=== PATIENT | male | born 1965 | race Caucasian/White ===

== ENCOUNTER 2020-02-05 15:57 | Emergency (ER) | payer BC, SELFPAY ==
[2020-02-05 15:57] VITALS: BP 181/100; PULSE 67; RESP 15; TEMP 36.4; O2SAT 99; BMI 28.5
--- NOTE | 2020-02-05 16:19 | RAD_ITS ---
STUDY: X-RAY - RIGHT HAND, ATTENTION THIRD AND FOURTH FINGER REASON FOR EXAM: Male, 54 years old. CAUGHT 3-4 DISTAL PHALANX IN AGILE SCRUM MASTER, PAIN TECHNIQUE: 3 view(s) of the finger were obtained. COMPARISON: None. FINDINGS: Normal metacarpal head. Normal metacarpophalangeal joint. Normal proximal and middle phalanges. There are acute fractures of the christophe of the distal phalanges of the third and fourth fingers. There is focal defect of the tuft of the third finger. There is soft tissue bandage and injury. Normal proximal interphalangeal joint. Normal distal interphalangeal joint. RAD/Finger(s) Min 2 Views IMPRESSION: Fractures of the christophe of the third and fourth fingers. Electronically Signed: Jamison Nelson MD at 16:55 EDT , Service support ,
[2020-02-05] MEDS: Bupivacaine Mpf 0.5% 30 ML VIAL INFILT (16:22)
[2020-02-05 18:49] VITALS: BP 170/96; PULSE 64; RESP 15; O2SAT 96
--- NOTE | 2020-02-05 18:49 | ED.DCSUM_ITS ---
- ER Visit Summary Date of Service: 02/05/20 Chief Complaint: Got my fingers caught in a wood ehs manager. History of Present Illness: The patient is a [address] Marc. He is right-hand dominant. He reports that at home he had work gloves on and got his right third and fourth fingers caught in a wood ehs manager. States that he has an aching pain is 6 out of 10 with movement 3-10 at rest. He denies any paresthesias. His tetanus is up-to-date. Physical Examination: Vitals: Stable. Afebrile. General: Well-nourished and well-developed. Head: Normocephalic atraumatic. Neck: Supple, no lymphadenopathy. No JVD. Nontender. Cardiovascular: Regular rate and rhythm. No murmurs. Respiratory: No respiratory distress. Clear to auscultation bilaterally. Abdominal: Soft, nontender, nondistended, normal bowel sounds. No guarding, rebound, or peritoneal signs. Back: Nontender. Extremities: The dorsal surface of his right third finger shows the nail to be mostly ground away. There is superficial tissue loss and exposed bone. There is no involvement of the palmar surface of this. The nail is in place and the eponychial fold. His fourth finger shows there to be approximately two thirds of the nail eroded. There is only a a small amount of bone that is exposed in the distal medial corner. There is no involvement of the palmar surface of this finger either. He has less than 2-second capillary refill. Skin: Normal color, no rash. Neurologic: Alert and oriented ?3. Cranial nerves II through XII are intact. Normal strength and sensation. Psych: Normal affect. Test Results: Clinical Impression(s) from Imaging Studies Finger X-Ray 02/05/20 16:19 IMPRESSION: Fractures of the christophe of the third and fourth fingers. Electronically Signed: Jamison Nelson MD at 16:55 EDT , Service support , Emergency Department Course and Treatment: Patient was given a dose of Ancef IM. He had a digital block performed to both fingers. They were cleansed with chlorhexidine soap and copiously irrigated. Vaseline gauze was placed over the exposed bone. Treatment Plan: Patient was discussed with Dr. Nirav Hyatt who asked that I discussed him with a hand surgeon. He was discussed with Dr. Winter from [facility] who asked that he be discharged on Keflex and contact her for follow-up in 2 days for another exam. Patient does realize that he may end up losing the distal phalanx of his third and fourth fingers. Return to the emergency department for any worsening symptoms. Disposition: To home in improved and stable condition. Impression: 1. 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 This note was generated with [employer] software. It may contain incorrect words, spelling, and punctuation that were not noted in review of the chart prior to signing ED Disposition - Plan for ED Patient: Disposition: Home or Assisted Living Instructions: ED Fx Finger Open Prescriptions: Cephalexin [Keflex] 500 mg PO Q6 #40 cap Prescription Printed Oxycodone HCl/Acetaminophen [Percocet 5/325] 1 tab PO Q6H PRN PRN 5 Days #20 tab PRN Reason: Pain Score 6-10/10 Prescription Printed Additional Instructions: Call Dr. Winter, [facility], at [phone] [place] Friday. She will see you in the [place] office and discuss options for further treatment.
[2020-02-05] MEDS: Cefazolin 1 GM/5 ML Vial IM (19:42)
== END 2020-02-05 20:09 | disposition home or self-care (01) ==
PROVIDERS: Emergency Provider Emergency Medicine; PCP Student in an Organized Health Care Education/Training Program
DX: S68.622A Partial traumatic transphalangeal amputation of right middle finger, initial encounter (principal); S68.624A Partial traumatic transphalangeal amputation of right ring finger, initial encounter; W31.2XXA Contact with powered woodworking and forming machines, initial encounter; Y93.9 Activity, unspecified; Y99.9 Unspecified external cause status
CPT/HCPCS: 64450; 73140; 96372; 99284

== ENCOUNTER 2022-07-18 00:13 | Emergency (ER) | payer BC, SELFPAY ==
[2022-07-18 00:14] VITALS: BP 143/99; PULSE 63; RESP 16; TEMP 36.7; O2SAT 98; BMI 32.1
[2022-07-18] MEDS: HYDROmorphone 1 MG/ML Syringe IV ×2 (00:24→01:14)
[2022-07-18] MEDS: 0.9% Normal Saline 1,000 ML 1000 ML IV (00:25)
[2022-07-18 00:28] LABS: Absolute Lymphocyte Count 3.56 X10^3/uL (0.83-4.51); Absolute Neutrophil Count 7.2 X10^3/uL (2.0-7.7); Basophil# 0.09 X10^3/uL; Basophil% 0.7 % (0-1); Eosinophil# 0.16 X10^3/uL; Eosinophils% 1.3 % (0-5); Hematocrit 44.2 % (40-54); Hemoglobin 15.3 g/dL (13.0-16.5); Lymphocyte # 3.56 X10^3/ul (0.83-4.51); Lymphocyte % 28.3 % (19-41); Mean Corp Hgb Conc 34.6 g/dL (32-36); Mean Corpuscular Hgb 31.5 pg (27.0-32.0); Mean Corpuscular Volume 91.1 fL (80-94); Mean Platelet Vol. 10.8 fl (6.2-12.0); Monocyte# 1.17 X10^3/uL; Monocyte% 9.3 % (0-10); NRBC Flagged by Analyzer 0 % (0-5); Neutrophil # 7.23 X10^3/uL (2.7-7.7); Neutrophil % 57.5 % (47-70); Platelet Count 199 K/mm3 (150-450); RBC Distribution Width CV 12.8 % (11.6-14.6); RBC Distribution Width SD 42.5 fl (35.1-43.9); Red Blood Count 4.85 M/mm3 (4.6-6.2); White Blood Count 12.6 K/mm3 (4.4-11.0)
--- NOTE | 2022-07-18 00:34 | CT_ITS ---
INDICATION: blunt trauma multiple rib fractures EXAMINATION: CT ABDOMEN AND PELVIS WITH CONTRAST - CT Chest Abdomen And Pelvis W/ Contrast Injection TECHNIQUE: Helically acquired images were obtained of the abdomen and pelvis following IV contrast. A radiation dose optimization technique was used for this scan. IV Contrast dosage and agent: 100 mL Isovue-370 Oral contrast: None. Radiation Dose (provided by facility) CTDIvol (45.72 ) mGy, DLP ( 2806.55) mGy-cm COMPARISON: None. FINDINGS: CT CHEST: LUNGS: [Minimal atelectasis at the lung bases greater on LEFT than RIGHT. No consolidation. There is a displaced rib fragment with mild deformity of lateral aspect RIGHT lower lobe (series 7: Image 57). No pneumothorax noted.. No mass. No consolidation. PLEURAL SPACES: Unremarkable, no effusion or pneumothorax noted.. HEART: Unremarkable. No pericardial effusion. VASCULATURE: Unremarkable. No aortic aneurysm. MEDIASTINUM AND LYMPH NODES: Minimal air bubbles noted in the anterior mediastinum (series 7: Image 80). CERVICAL THORACIC JUNCTION: There is normal appearance of the visualized airway. No masses or abnormal fluid collections. Visualized thyroid is within normal limits. CT ABDOMEN PELVIS: HEPATOBILIARY: Liver: The liver is homogeneous and shows no evidence of focal lesion. No parenchymal laceration or hemorrhage. Gallbladder: The gallbladder is unremarkable. Pancreas: Pancreas is normal size configuration and density. No mass is noted. Spleen: The spleen is homogeneous and normal in size. . No parenchymal laceration or hemorrhage. BOWEL: 1. Stomach: The stomach is normal in size configuration, no evidence of focal masses, abnormal calcifications. No hiatal hernia noted. 2. Bowel: Small and large have normal configuration, no masses or bowel obstruction noted. 3. Appendix: Normal: GENITOURINARY: Adrenals: RIGHT adrenal gland is moderately enlarged and contains a 3.0 x 2.1 cm nodule with mean Hounsfield density is 62 0 silk limits. LEFT adrenal gland has normal appearance.. Kidneys: Kidneys appear symmetric in size. No calcifications are seen in the collecting system. There is no hydronephrosis or surrounding fluid. Bladder: Normal Pelvic organs: The visualized pelvic organs are normal in size and configuration. No masses or adenopathy noted. RETROPERITONEUM: There is normal appearance of the abdominal aorta and inferior vena cava. No evidence of retroperitoneal or para-aortic masses fluid collections or adenopathy. ANTERIOR ABDOMINAL WALL: Normal, no hernia identified. CHEST ABDOMEN PELVIS - BONES AND BODY WALL SOFT TISSUES: 1. No evidence fractures involving the shoulders including the clavicles. 2. No sternal fracture or thoracic spine fracture noted. 3. Multiple RIGHT rib fractures are present including RIGHT third, fourth, fifth rib fractures. Significant displaced RIGHT sixth rib and to lesser extent seventh rib fractures. 4. No evidence of fractures involving the lumbar spine, sacrum, sacroiliac joints, pelvis and hips bilaterally. OTHER: None CT/CT Chest, Abd, Pel w/Contrast IMPRESSION: 1. Multiple RIGHT rib fractures including RIGHT third through seventh ribs. There is moderate displacement of a bony fragment at the RIGHT sixth rib. No pneumothorax. 2. Several small air bubbles are present in the anterior mediastinum of indeterminate origin. 3. Minimal atelectasis at the lung bases, no consolidation or effusion. 4. No evidence of vascular injury involving the great vessels. 5. No evidence of acute traumatic injury to the solid organs of the abdomen and pelvis including the liver, pancreas, spleen, and kidneys. 6. No evidence masses bowel obstruction abscess free fluid or free air. Normal appendix noted. 7. No evidence of obstructive uropathy involving either kidney. 8. 3.0 x 2.1 cm RIGHT adrenal nodule. In the absence of previous imaging for comparison, consider short-term follow-up in approximately 4-6 months to assure stability, alternatively evaluation with MRI or triple phase CT to establish washout kinetics. Electronically Signed: Mega Coronado MD at 1:51 EDT ,
--- NOTE | 2022-07-18 00:34 | CT_ITS ---
INDICATION: trauma EXAMINATION: CT CERVICAL SPINE - CT Spine Cervical W/O Contrast Injection TECHNIQUE: Helically acquired images were obtained of the cervical spine. 2D reformatted images were reviewed. A radiation dose optimization technique was used for this scan. IV Contrast dosage and agent: None. COMPARISON: None. FINDINGS: VERTEBRAE: No fracture or traumatic subluxation. No discrete lytic or blastic abnormality. Normal alignment. Normal craniocervical junction and cervicothoracic junction. Normal appearance of the odontoid process. DISCS and SPINAL CANAL: Disc heights are preserved. No critical stenosis. NECK SOFT TISSUES: No prevertebral soft tissue swelling. There is no cervical adenopathy. LUNG APICES: Clear. CT/Spine Cervical without Contras IMPRESSION: 1. No evidence of acute cervical spinal fracture or spondylolisthesis. No evidence of acutely acquired canal stenosis. Electronically Signed: Mega Coronado MD at 1:38 EDT ,
--- NOTE | 2022-07-18 00:34 | CT_ITS ---
INDICATION: trauma EXAMINATION: CT BRAIN - CT Head or Brain W/O Contrast Injection TECHNIQUE: Multiple axial images were obtained of the head without intravenous contrast. A radiation dose optimization technique was used for this scan. IV Contrast dosage and agent: None. RADIATION DOSAGE (If Supplied By Facility): CTDIvol = ( 44.99 ) mGy, DLP = ( 914.22 ) mGycm COMPARISON: None FINDINGS: HEMISPHERES: 1. The cerebral parenchyma, ventricular system, subarachnoid spaces have normal configuration and density. There is a normal gyral pattern. There is normal farias/white differentiation. No midline shift.. 2. The hemispheric white matter has normal appearance. 3. No intraparenchymal mass, hemorrhage, or acute territorial infarct. CEREBELLUM - BRAINSTEM: The cerebellum, brainstem, basilar and suprasellar cisterns have normal appearance. No Chiari malformation. PITUITARY: Infundibulum and pituitary have normal configuration. Midline structures appear normal. CSF SPACES: Appropriate for age. No hydrocephalus. Basal cisterns are patent. VESSELS: 1. No significant vascular calcifications in the cavernous carotid vessels. 2. No hyperdense vascular signs noted.. ORBITS AND PARANASAL SINUSES: 1. Normal appearance of the bony orbits. Normal appearance of the globes and retrobulbar soft tissues.. 2. Paranasal sinuses are clear of air-fluid levels. Mild mucosal thickening and mucous retention cysts in the maxillary antra.. BONY ELEMENTS: Bony elements of the cranial vault, facial skeleton and skull base have normal appearance. SCALP AND SOFT TISSUES: Normal appearance of the soft tissues of the scalp and the visualized face OTHER: None ASPECTS Score for Acute Strokes: 10 CT/Brain/Head without Contrast IMPRESSION: 1. No intracranial evidence of acute traumatic injury. 2. No intracranial mass, hemorrhage or acute territorial infarct. 3. No cranial facial fractures noted. 4. No radiographically significant sinus disease with the exception of bilateral maxillary mucous retention cyst... Electronically Signed: Mega Coronado MD at 1:34 EDT ,
[2022-07-18 00:37] VITALS: BP 151/111; PULSE 68; RESP 32; O2SAT 95
[2022-07-18 00:39] LABS: International Normalized Ratio 1.2; Prothrombin Time (Protime)PT. 14.7 SECONDS (11.7-14.9)
[2022-07-18 00:40] LABS: Partial Thromboplast Time 27.1 Seconds (24.1-36.2)
--- NOTE | 2022-07-18 00:40 | RAD_ITS ---
INDICATION: trauma EXAMINATION/TECHNIQUE: X-RAY - XR Chest 1 View COMPARISON: None. FINDINGS: LIFE-SUPPORT AND LINES: 1. None HEART AND VESSELS: The cardiac silhouette, pulmonary vasculature have normal appearance. No evidence of congestive failure. LUNGS AND PLEURAL SPACES: Lungs are clear of lobar consolidation, patchy density along the periphery of the RIGHT lower lobe. Mild basilar atelectasis noted. No pneumothorax. MEDIASTINUM AND HILAR REGIONS: No masses adenopathy noted. No areas of calcification. Visualized upper airway is normal in position. BONY ELEMENTS: Mildly displaced RIGHT fifth sixth and seventh ribs. RAD/Chest 1 View (Portable) IMPRESSION: 1. Mildly displaced RIGHT fifth, sixth, seventh rib fractures. 2. Patchy areas of underlying parenchymal density, mild atelectasis versus pulmonary contusion are considerations. 3. No pneumothorax. 4. Mild basilar atelectasis. 5. No congestive failure Electronically Signed: Mega Coronado MD at 1:05 EDT ,
[2022-07-18 00:51] LABS: AST(SGOT) 107 U/L (15-37); Alanine Aminotransfer ALT/SGPT 96 U/L (16-61); Alkaline Phosphatase 71 U/L (45-117); Anion Gap 7 (5-15); BUN 17 mg/dL (7-18); BUN/Creat Ratio 15.5 RATIO (10-20); Chloride 109 mmol/L (98-107); EST Glomerular Filtration Rate 73 mL/min (>60); Est Glom Filt Rate - Afr Amer 88 mL/min (>60); Estimated Creatinine Clearance 77.96 ml/min; Globulin 3.9 g/dL (2.2-4.2); Glucose 126 mg/dL (74-106); Potassium 3.5 mmol/L (3.5-5.1); Protein, Total 7.9 g/dL (6.4-8.2); Sodium Level 143 mmol/L (136-145); Troponin-I HS 8 pg/mL (3.0-78.0)
--- NOTE | 2022-07-18 00:54 | EX.ED.GENINJ ---
HPI History of Present Illness Chief Complaint: Trauma Informant: patient and EMS Narrative Narrative: 57-year-old male arriving via EMS with a chief complaint of chest pain. Reportedly he was cutting a tree when it fell on his chest. He notes pain on the right side of his chest. EMS was concerned for potential for head injury due to reported unequal pupils. The patient denies any head or neck symptoms. He states his legs feel fine. He denies any abdominal pain but EMS notes bruising and firmness of the abdomen. [facility] Medical History Hypertension Allergy/AdvReac Type Severity Reaction Status Date / Time No Known Allergies Allergy Verified 07/18/22 00:16 Social History (Updated 07/18/22 @ 00:[address] Jose Jennings DO) Smoking Status: Never smoker substance use type: does not use ROS ROS ED Constitutional Constitutional ED: Denies chills or weight loss Eyes Eyes: Denies change in vision or diplopia ENT ENT ED: Denies ear pain, rhinorrhea or sore throat Cardiovascular Cardiovascular: Reports chest pain; Denies orthopnea, palpitations or racing heartbeat Respiratory/Chest Respiratory/Chest: Denies cough, dyspnea or orthopnea Gastrointestinal Gastrointestinal: Denies abdominal pain, diarrhea, nausea or vomiting Genitourinary Genitourinary ED: Denies dysuria, hematuria or urinary frequency Musculoskeletal Musculoskeletal: Denies arthralgias or myalgias Integumentary Denies abscess or rash Neurologic Neurologic: Denies headache(s) or weakness Psychiatric Psychiatric: Denies anxiety, depression, suicidal ideation or suicidal thoughts Endocrine Endocrinology: Denies polydipsia, polyphagia or polyuria Allergic/Immunologic Allergic/Immunologic ED: Denies mouth swelling, tongue swelling or urticaria EXAM Physical Exam Const Vital Signs: 07/18/22 00:14 07/18/22 00:32 07/18/22 00:37 Temperature 98.1 F Temperature Source Temporal Pulse Rate 63 68 Respiratory Rate 16 32 H Respiratory Effort Short of Breath Respiratory Depth Normal Respiratory Pattern Tachypnea Blood Pressure 143/99 H 151/111 H Blood Pressure Mean 113 124 Pulse Ox 98 95 Oxygen Delivery Method Room Air Room Air Room Air Oxygen Flow Rate (L/min) 07/18/22 01:24 07/18/22 01:24 07/18/22 03:15 Temperature 97.9 F Temperature Source Pulse Rate 84 87 Respiratory Rate 26 H 21 H Respiratory Effort Respiratory Depth Respiratory Pattern Blood Pressure 199/106 H 153/96 H Blood Pressure Mean 137 115 Pulse Ox 92 97 Oxygen Delivery Method Room Air Nasal Cannula Oxygen Flow Rate (L/min) 2 07/18/22 03:30 Temperature Temperature Source Pulse Rate 83 Respiratory Rate 20 H Respiratory Effort Respiratory Depth Respiratory Pattern Blood Pressure 195/99 H Blood Pressure Mean 131 Pulse Ox 95 Oxygen Delivery Method Room Air Oxygen Flow Rate (L/min) Positive well nourished and well developed General Appearance ED: well developed HEENT Reports normocephalic, head/scalp atraumatic and moist mucous membranes Eyes PERRL and EOMs intact bilaterally General Eye ED: Yes other Neck no lymphadenopathy, supple and no JVD Chest Wall Chest Narrative: There is tenderness to palpation of the right chest. There appears to be palpable rib fractures. Resp normal respiratory effort and clear to auscultation bilaterally Cardio regular rate, regular rhythm and no murmurs GI non-tender GI Narrative: He appears to be bruising over the lower abdomen. The abdomen is firm. Inspection: Negative for abdominal distention Palpation: soft Back/Spine no CVA tenderness and normal ROM Back/Spine Narrative: abrasion/contusion to upper back Extremity normal to inspection General Extremety ED: Negative for edema General Extremity: Negative for edema Neuro oriented x3 and CN's II-XII intact bilaterally Sensorium / Orientation: alert Motor Exam: strength 5/5 throughout Psych mental status grossly normal Mood & Affect: Negative for depressed or tearful Skin no rashes or lesions noted MDM MDM MDM Narrative Medical decision making narrative: Patient's blood work appears stable with a troponin of 8. On my review of CTs CT brain and cervical spine appear atraumatic. The abdominal CT demonstrates a adrenal nodule. CT of the chest demonstrates fractures of the third through seventh ribs. There is significant displacement of the right sixth rib. There appears to be a left small apical pneumothorax. The patient was placed on supplemental oxygen and received Dilaudid for pain control. I spoke with the patient regarding transfer to trauma center. Patient has been accepted by Dr. Buck to [facility]. Lab Data Attestation: I reviewed the patient's lab results. Labs: Laboratory Results - last 24 hr 07/18/22 07/18/22 07/18/22 00:20 00:20 00:20 WBC 12.6 H RBC 4.85 Hgb 15.3 Hct 44.2 MCV 91.1 MCH 31.5 MCHC 34.6 RDW Std Deviation 42.5 RDW Coeff of Tian 12.8 Plt Count 199 MPV 10.8 Immature Gran % (Auto) 2.900 H Neut % (Auto) 57.5 Lymph % (Auto) 28.3 [place] % (Auto) 9.3 Eos % (Auto) 1.3 Baso % (Auto) 0.7 Absolute Neuts (auto) 7.2 Absolute Lymphs (auto) 3.56 Nucleated RBC % 0 PT 14.7 INR 1.2 APTT 27.1 Sodium 143 Potassium 3.5 Chloride 109 H Carbon Dioxide 27.0 Anion Gap 7 BUN 17 Creatinine 1.10 Estim Creat Clear Calc 77.96 Est GFR (MDRD) Af Amer 88 Est GFR (MDRD) Non-Af 73 BUN/Creatinine Ratio 15.5 Glucose 126 H Calcium 9.0 Total Bilirubin 0.50 AST 107 H ALT 96 H Alkaline Phosphatase 71 Troponin I High Sens 8 Total Protein 7.9 Albumin 4.0 Globulin 3.9 Albumin/Globulin Ratio 1.0 Radiography Diagnostic Testing: Clinical Impression(s) from Imaging Studies Brain CT 07/18/22 00:34 IMPRESSION: 1. No intracranial evidence of acute traumatic injury. 2. No intracranial mass, hemorrhage or acute territorial infarct. 3. No cranial facial fractures noted. 4. No radiographically significant sinus disease with the exception of bilateral maxillary mucous retention cyst... Electronically Signed: Mega Coronado MD at 1:34 EDT , Cervical Spine CT 07/18/22 00:34 IMPRESSION: 1. No evidence of acute cervical spinal fracture or spondylolisthesis. No evidence of acutely acquired canal stenosis. Electronically Signed: Mega Coronado MD at 1:38 EDT , Chest/Abdomen/Pelvis CT 07/18/22 00:34 IMPRESSION: 1. Multiple RIGHT rib fractures including RIGHT third through seventh ribs. There is moderate displacement of a bony fragment at the RIGHT sixth rib. No pneumothorax. 2. Several small air bubbles are present in the anterior mediastinum of indeterminate origin. 3. Minimal atelectasis at the lung bases, no consolidation or effusion. 4. No evidence of vascular injury involving the great vessels. 5. No evidence of acute traumatic injury to the solid organs of the abdomen and pelvis including the liver, pancreas, spleen, and kidneys. 6. No evidence masses bowel obstruction abscess free fluid or free air. Normal appendix noted. 7. No evidence of obstructive uropathy involving either kidney. 8. 3.0 x 2.1 cm RIGHT adrenal nodule. In the absence of previous imaging for comparison, consider short-term follow-up in approximately 4-6 months to assure stability, alternatively evaluation with MRI or triple phase CT to establish washout kinetics. Electronically Signed: Mega Coronado MD at 1:51 EDT , Chest X-Ray 07/18/22 00:40 IMPRESSION: 1. Mildly displaced RIGHT fifth, sixth, seventh rib fractures. 2. Patchy areas of underlying parenchymal density, mild atelectasis versus pulmonary contusion are considerations. 3. No pneumothorax. 4. Mild basilar atelectasis. 5. No congestive failure Electronically Signed: Mega Coronado MD at 1:05 EDT , Discharge Plan Triage Chief Complaint: Trauma ED Provider: Jose Jennings Dx/Rx/DC Orders Clinical Impression: Multiple fractures of ribs, Pneumothorax, Pneumomediastinum Primary Care Provider: Fabienen Castro Referrals: [facility] Doctor,Out of [Non-Staff] - Disposition Disposition: Acute Care Hospital Discharge Location: [facility]
[2022-07-18 01:24] VITALS: BP 199/106; PULSE 84; RESP 26; O2SAT 92
--- NOTE | 2022-07-18 03:00 | ED.RN ---
ASSISTED PATIENT IN USING THE URINAL. 700 CC CLEAR YELLOW URINE NOTED.
[2022-07-18 03:15] VITALS: BP 153/96; PULSE 87; RESP 21; TEMP 36.6; O2SAT 97
[2022-07-18 03:30] VITALS: BP 195/99; PULSE 83; RESP 20; O2SAT 95
[2022-07-18] MEDS: HYDROmorphone 0.5 MG/0.5 ML SYRINGE IV (03:41)
== END 2022-07-18 04:03 | disposition short-term general hospital (02) ==
PROVIDERS: Emergency Provider Emergency Medicine; PCP Family Medicine; Visit Provider Emergency Medicine
DX: S22.41XA Multiple fractures of ribs, right side, initial encounter for closed fracture (principal); J98.2 Interstitial emphysema; E27.8 Other specified disorders of adrenal gland; I10 Essential (primary) hypertension; S27.0XXA Traumatic pneumothorax, initial encounter; R07.9 Chest pain, unspecified; W20.8XXA Other cause of strike by thrown, projected or falling object, initial encounter
CPT/HCPCS: 70450; 71045; 71260; 72125; 74177; 80053; 84484; 85025; 85610; 85730; 96361; 96374; 96376; 99285; Q9967